=== PATIENT | female | born 1930 | race Caucasian/White ===

== ENCOUNTER → 2016-12-19 | Outpatient (CLI) | payer MEDICARE ==
[~2016-12-19] MED LIST: AMIODARONE HCL100 MG PO; ASPIRIN325 MG PO; HUMALOG100 UNIT/3 SUB-Q; HYDROCHLOROTH12.5 MG PO; LASIX20 MG PO; LEVEMIR100 UNIT/1 SUB-Q; LIPITOR10 MG PO; NOVOLOG100 UNIT/M SUB-Q; OXYGEN M-15; PERCOCET 5-3251 EACH PO; POTASSIUM CHLO20 ME2 PO; TYLENOL/COD#31 TAB PO; VITAMIN D-32000 UNI1 PO; VITAMIN E100 UNI1 PO; XARELTO15 MG PO
== END | disposition disaster alternative care site (69) ==
LOC: LCNC 11:25
DX: I25.10 Atherosclerotic heart disease of native coronary artery without angina pectoris (principal); E11.9 Type 2 diabetes mellitus without complications; Z79.899 Other long term (current) drug therapy